=== PATIENT | male | born 1980 | race Caucasian/White ===

== ENCOUNTER → 2020-04-02 12:58 | Outpatient (CLI) | payer OTHER, SELFPAY ==
--- NOTE | ~2020-04-02 | MR_ITS ---
EXAMINATION: MR shoulder LT wo con DATE: 04/02/2020 14:04 INDICATION: Left shoulder pain TECHNIQUE: Magnetic resonance imaging (MRI) of the left shoulder was performed without intravenous co ntrast. Sequences included axial PD-weighted FS FSE, coronal oblique PD-weighted FS FSE, coronal obli que T2-weighted FS FSE, sagittal PD-weighted FS FSE, and sagittal T1-weighted SE. COMPARISON: Left shoulder radiographs dated 03/23/2020 FINDINGS: Coracoacromial arch: The acromion undersurface is curved in morphology (type II). The coracoacromial ligament is normal. M inimal acromioclavicular osteoarthritis. Rotator cuff: Mild tendinopathy without discrete tear at the conjoined portion of the supraspinatus and infraspinat us tendons. Mild subscapularis tendinopathy without discrete tear. The teres minor tendon is normal. Normal rotator cuff muscle bulk and signal. Biceps tendon, glenoid labrum and glenohumeral cartilage: Long head of the biceps tendon is normal. Small likely paravertebral cyst suggesting an otherwise occ ult tear at the 7:00-8:00 position of the posterior inferior glenoid labrum. Glenohumeral cartilage i s normal. Fluid: Physiologic amount of fluid in the glenohumeral joint and biceps tendon sheath. No loose osteochondra l bodies. Small amount of fluid in the subacromial/subdeltoid bursa consistent with mild bursitis. Bones: Mild marrow edema at the cephalad aspect of the lesser tuberosity which appears be centered around a small erosion versus cystic change with low signal intensity sclerotic margins also subtly evident on the prior radiographs. Bone alignment is normal. No fracture or pathologic marrow replacing process. IMPRESSION: 1. Small likely paravertebral cyst at the posterior inferior glenoid suggesting otherwise occult labr al tear. 2. Mild tendinopathy of the subscapularis and conjoined supraspinatus and infraspinatus tendons witho ut discrete tear. 3. Mild subacromial/subdeltoid bursitis. Reviewed, dictated and finalized at location B. IMPRESSION: 1. Small likely paravertebral cyst at the posterior inferior glenoid suggesting otherwise occult labral tear. 2. Mild tendinopathy of the subscapularis and conjoined supraspinatus and infra spinatus tendons without discrete tear. 3. Mild subacromial/subdeltoid bursitis.
== END ==
PROVIDERS: Visit Provider Nurse Practitioner Family
DX: M75.52 Bursitis of left shoulder (principal)
CPT/HCPCS: 73221

== ENCOUNTER 2020-05-12 06:52 | Outpatient (NON) | payer OTHER, SELFPAY ==
[2020-05-13 02:00] LABS: SARS-CoV-2 RNA PCR Positive
== END 2020-05-12 06:53 ==
LOC: ANHCOVIDDT 07:17
PROVIDERS: Visit Provider Internal Medicine
DX: U07.1 COVID-19 (principal)
CPT/HCPCS: 87635; C9803; U0003

== ENCOUNTER 2022-04-06 09:44 | Outpatient (CLI) | payer OTHER, SELFPAY ==
--- NOTE | ~2022-04-06 | XR_ITS ---
EXAMINATION: XR UGIAC w small bowel DATE: 04/06/2022 11:24 INDICATION: Right lower quadrant pain TECHNIQUE: The patient drank thick barium, gas-producing crystals, and thin barium. Fluoroscopy of th e esophagus, stomach, and small bowel were performed. Fluoroscopy exposure time was 3.1 minutes. The DAP for this procedure was 41.79 Gycm2. COMPARISON: None. FINDINGS: UPPER GASTROINTESTINAL SERIES: There is no mass or stricture of the esophagus. Esophageal motility is normal. There is no hiatal her james. There was no gastroesophageal reflux with provocative maneuvers. The stomach shows a normal fold ing pattern.] SMALL BOWEL SERIES: Transit time from the stomach to proximal colon was approximately 45 minutes. There is normal caliber and mucosal fold pattern throughout the small bowel. There is a moderate volume of colonic stool. Te rminal ileum is normal. No tethering or abnormal mass effect observed upon the small bowel with real -time fluoroscopy. IMPRESSION: 1. Unremarkable small bowel follow-through. Reviewed, dictated and finalized at location A.
== END 2022-04-06 09:45 | disposition home or self-care (01) ==
PROVIDERS: PCP Physician Assistant; Visit Provider Physician Assistant
DX: N50.89 Other specified disorders of the male genital organs (principal); K30 Functional dyspepsia; R10.31 Right lower quadrant pain
CPT/HCPCS: 74246; 74248

== ENCOUNTER → 2022-04-12 10:18 | Outpatient (CLI) | payer OTHER, SELFPAY ==
--- NOTE | ~2022-04-12 | US_ITS ---
EXAMINATION: US scrotum doppler DATE: 04/12/2022 11:38 INDICATION: Right-sided testicular pain and swelling TECHNIQUE: Testicular sonogram utilizing grayscale and Doppler COMPARISON: None. FINDINGS: The right testis measures 4.6 x 2.5 x 3.2 cm. The left testis measures 4.8 x 2.3 x 2.8 cm. Symmetric normal grayscale appearance to both testes. There is normal vascular flow to both testes. There are c ouple 3 to 4 mm anechoic right epididymal head cysts. The right epididymis is otherwise normal with n ormal vascular flow. 2 mm left epididymal head cyst. The left epididymis is otherwise normal with nor mal vascular flow. There is no varicocele or hydrocele. IMPRESSION: 1. Very small bilateral epididymal head cyst. Otherwise unremarkable scrotal ultrasound. Reviewed, dictated and finalized at location A. IMPRESSION: 1. Very small bilateral epididymal head cyst. Otherwise unremarkable scrotal u ltrasound.
--- NOTE | ~2022-04-12 | CT_ITS ---
EXAMINATION: CT abdomen pelvis w con DATE: 04/12/2022 15:49 INDICATION: Right lower quadrant abdominal pain, discomfort TECHNIQUE: Computed tomography (CT) of the abdomen and pelvis was performed with 100 CC Omnipaque 350 intravenous contrast. Automated exposure control and iterative reconstruction technique were employe d. Exam dose: 502.51 mGy-cm total exam DLP. COMPARISON: 04/06/2022 upper gastrointestinal series, small bowel follow-through FINDINGS: The lung bases are clear of infiltrate or consolidation. Normal heart size. No pericardial or pleural effusion. Several probable small hepatic cysts are noted, largest 9.5 mm. The liver, gallbladder, bile ducts, s pleen, pancreas, adrenal glands and kidneys are unremarkable. Normal caliber of the abdominal aorta. No intraperitoneal or retroperitoneal or pelvic mass lesion or adenopathy or ascites is detected. No bowel obstruction, bowel wall thickening, pneumatosis or intraperitoneal free air. No evidence of appendicitis. Included skeletal structures are unremarkable. IMPRESSION: Hepatic cysts Reviewed, dictated and finalized at [facility]. Reviewed, dictated and finalized at location A. IMPRESSION: Hepatic cysts
== END ==
PROVIDERS: PCP Physician Assistant; Visit Provider Physician Assistant
DX: R10.31 Right lower quadrant pain (principal); K76.89 Other specified diseases of liver; N50.3 Cyst of epididymis
CPT/HCPCS: 74177; 76870; 93976; Q9967